=== PATIENT | male | born 1980 | race Caucasian/White ===

== ENCOUNTER 2017-05-12 07:44 | Emergency (ER) | payer BC ==
[~2017-05-12] VITALS: Ht 182.9 cm; Wt 125.9 kg
[~2017-05-12 07:44] MED LIST: CARAFATE1 GM PO; PERCOCET 5/31 TABLET PO
[2017-05-12 08:39] LABS: APPEARANCE CLEAR ((CLEAR)); BILIRUBIN NEGATIVE; BLOOD SMALL; COLOR YELLOW ((YELLOW)); GLUCOSE (STRIP) NEGATIVE; KETONES NEGATIVE; LEUKOCYTES NEGATIVE; NITRITE NEGATIVE; PROTEIN (STRIP) NEGATIVE; UROBILINOGEN 0.2 MG/DL (0.2-1.0)
[2017-05-12 08:43] LABS: BACTERIA NONE SEEN /HPF; EPITHELIAL CELLS RARE /HPF; MUCUS TRACE /LPF; RED BLOOD CELLS 0-5 /HPF (0-5); UCUL ADDED? NO; WHITE BLOOD CELLS 0-5 /HPF (0-5)
[2017-05-12 08:53] LABS: HEMATOCRIT 42.4 % (38.0-50.0); HEMOGLOBIN 14.8 G/DL (12.5-16.6); MCH 30.6 PG (29.0-34.0); MCHC 34.9 G/DL (30.0-36.0); MCV 87.6 FL (86-99); PLATELET COUNT 193 K/uL (156-360); RBC DIS.WIDTH-CV 12.3 % (11.8-14.6); RBC DIS.WIDTH-SD 39.6 % (39-53); RED BLOOD COUNT 4.84 M/uL (4.00-5.50); WHITE BLOOD COUNT 5.8 K/uL (4.1-10.2)
[2017-05-12 09:04] LABS: ALBUMIN 4.2 g/dL (3.2-4.8); CHLORIDE 108 mEq/L (99-109); POTASSIUM 4.1 mEq/L (3.7-5.4); SODIUM 139 mEq/L (136-147)
[2017-05-12 09:06] LABS: GLUCOSE 101 mg/dL (70-99)
[2017-05-12 09:07] LABS: TOTAL PROTEIN 7.2 g/dL (6.4-8.3)
[2017-05-12 09:08] LABS: TOTAL BILIRUBIN 0.5 mg/dL (0.0-1.0)
[2017-05-12 09:10] LABS: ALKALINE PHOSPHATASE 48 IU/L (3-129); GFR ESTIMATE (CALCULATED) > 59 mL/min/ (58.99-99999)
[2017-05-12 09:11] LABS: UREA NITROGEN (BUN) 14 mg/dL (9-23)
[2017-05-12 09:12] LABS: AST (GOT) 34 IU/L (2-34)
[2017-05-12 09:13] LABS: ALT (GPT) 44 IU/L (3-49)
[2017-05-12] MEDS ORDERED: VALIUM5 MG PO (10:34)
[2017-05-12] MEDS ORDERED: PERCOCET 5/31 TABLET PO (10:34)
[2017-05-12 11:54] VITALS: BP 126/78
== END 2017-05-12 11:55 | disposition home or self-care (01) ==
LOC: EME 07:44
DX: N50.819 Testicular pain, unspecified (principal); S39.012A Strain of muscle, fascia and tendon of lower back, initial encounter; S29.012A Strain of muscle and tendon of back wall of thorax, initial encounter
CPT/HCPCS: 72129; 72132; 80053; 81003; 85027; 99281; 99285; J1100; J2270; J2405; J3010; J7030

== ENCOUNTER 2017-05-14 08:03 | Emergency (ER) | payer BC ==
[~2017-05-14] VITALS: Ht 182.9 cm; Wt 127.7 kg
[~2017-05-14 08:03] MED LIST changes: +VALIUM5 MG PO
[2017-05-14] MEDS ORDERED: PREDNISONE10 M1 PO (10:45)
[2017-05-14] MEDS ORDERED: ZOFRAN ODT4 MG PO (10:45)
[2017-05-14 10:53] VITALS: BP 135/84
== END 2017-05-14 10:55 | disposition home or self-care (01) ==
LOC: EME 08:03
DX: M54.5 Low back pain (principal); R10.30 Lower abdominal pain, unspecified; G89.29 Other chronic pain
CPT/HCPCS: 99281; 99284

== ENCOUNTER 2017-06-11 05:46 | Emergency (ER) | payer BC ==
[~2017-06-11] VITALS: Ht 182.9 cm; Wt 123.5 kg
[~2017-06-11 05:46] MED LIST changes: +PREDNISONE10 M1 PO; +ZOFRAN ODT4 MG PO
[2017-06-11 07:09] VITALS: BP 139/89
== END 2017-06-11 09:10 | disposition home or self-care (01) ==
LOC: EME 05:46
DX: M79.642 Pain in left hand (principal); M25.521 Pain in right elbow; W01.0XXA Fall on same level from slipping, tripping and stumbling without subsequent striking against object, initial encounter
CPT/HCPCS: 73080; 73130; 99281; 99284